=== PATIENT | female | born 1960 ===

== ENCOUNTER 2024-11-16 13:04 | Day surgery (SDC) | payer MEDICARE, OTHER ==
[2024-11-16] MEDS: Lactated Ringers 1,000 ML IV SCH (13:26)
[2024-11-16] MEDS: Sodium Chloride 0.9% 10 ML Syringe FLUSH PRN (13:26)
[2024-11-16] MEDS ORDERED: Propofol 200 MG/20 ML SDV ONE (13:56)
[2024-11-16] MEDS ORDERED: Midazolam 1 MG/ML 2 ML SDV ONE (13:56)
[2024-11-16 17:08] VITALS: PULSE 74
[2024-11-16 17:09] VITALS: BP 123/84
== END 2024-11-16 16:32 | disposition home or self-care (01) ==
LOC: KA.SDS 13:04
PROVIDERS: ATTEND Surgery
DX: D12.0 Benign neoplasm of cecum (principal); K57.31 Diverticulosis of large intestine without perforation or abscess with bleeding; K64.8 Other hemorrhoids; Z88.8 Allergy status to other drugs, medicaments and biological substances; Z91.030 Bee allergy status; Z79.899 Other long term (current) drug therapy; Z86.0100 Personal history of colon polyps, unspecified
CPT/HCPCS: J2250; J2704; J7120